=== PATIENT | male | born 1980 | race American Indian/Alaskan Native ===

== ENCOUNTER 2018-04-09 16:57 | Emergency (ER) | payer SELFPAY ==
[2018-04-09 17:15] VITALS: BP 169/83
[2018-04-09] MEDS ORDERED: NACL 0.9% 1000 ML 1,000 ML IV ONE (17:17)
--- NOTE | 2018-04-09 17:17 | Emergency Department Report ---
Chief Complaint: Overdose Stated Complaint: OVERDOSE Time Seen by Provider: 04/09/18 17:14 - HPI History of Present Illness: ate cookies laced with cannibus ordered in mail per pt he is not forth coming etoh occ cig pos pmh none psh achilles rx none pcp none tachycardic in triage 12 lead and main ED MSE screening note: Focused history and physical exam performed. Due to findings the following was ordered: ED Disposition for MSE Condition: Stable
[2018-04-09 17:36] LABS: Basophils % (Auto) 0.6 % (0.0-1.8); Eosinophils # (Auto) 0.1 K/mm3 (0.0-0.4); Eosinophils % (Auto) 0.9 % (0.0-4.3); Hematocrit 45.5 % (35.5-45.6); Hemoglobin 15.6 gm/dl (11.8-15.2); Lymphocytes # (Auto) 2.2 K/mm3 (1.2-5.4); Lymphocytes % (Auto) 25.2 % (13.4-35.0); Mean Corpuscular HGB Conc 34 % (32-34); Mean Corpuscular Volume 86 fl (84-94); Monocytes # (Auto) 0.6 K/mm3 (0.0-0.8); Monocytes % (Auto) 7.1 % (0.0-7.3); Platelet Count 380 K/mm3 (140-440); Red Blood Count 5.27 M/mm3 (3.65-5.03); Red Cell Distribution Width 14.2 % (13.2-15.2)
[2018-04-09 17:58] LABS: Alanine Aminotransferase 26 units/L (7-56); Albumin 4.4 g/dL (3.9-5); BUN/Creatinine Ratio 11; Blood Urea Nitrogen 12 mg/dL (9-20); Calcium 9.5 mg/dL (8.4-10.2); Hemolysis Index 13
== END 2018-04-09 17:44 | disposition left against medical advice (07) ==
LOC: ED 16:57
DX: R00.2 Palpitations (principal); Z53.21 Procedure and treatment not carried out due to patient leaving prior to being seen by health care provider
CPT/HCPCS: 36415; 80053; 82550; 84484; 85025; 93005; 93010